=== PATIENT | male | born 1980 | race Caucasian/White ===

== ENCOUNTER 2018-09-09 02:08 | Emergency (ER) | payer OTHER ==
[~2018-09-09] VITALS: Ht 177.8 cm; Wt 95.0 kg
[2018-09-09 02:12] VITALS: BP 174/95; PULSE 89; RESP 16; Ht 177.8 cm; Wt 95.0 kg
[2018-09-09] MEDS ORDERED: ONDANSETRON (ODT) 4 MG TAB ODT STA (04:35)
[2018-09-09] MEDS ORDERED: HYDROCODONE/APAP (5/325) TAB PO ONE (05:00)
[2018-09-09] MEDS ORDERED: LORAZEPAM 0.5 MG TAB PO ONE (05:30)
[2018-09-09] MEDS ORDERED: HYDR-4011 PO (06:02)
[2018-09-09] MEDS ORDERED: NAPR-985 PO (06:02)
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
== END 2018-09-09 06:46 | disposition home or self-care (01) ==
LOC: FTE 02:08
DX: S69.91XA Unspecified injury of right wrist, hand and finger(s), initial encounter (principal); S19.9XXA Unspecified injury of neck, initial encounter; S99.921A Unspecified injury of right foot, initial encounter; Y08.89XA Assault by other specified means, initial encounter
CPT/HCPCS: 71100